=== PATIENT | male | born 1970 | race Two or more races ===

== ENCOUNTER 2017-10-10 17:40 | Emergency (ER) | payer OTHER ==
[~2017-10-10] VITALS: Ht 162.6 cm; Wt 88.3 kg
[2017-10-10] MEDS ORDERED: SODIUM CHLORIDE FLUSH 10ML SYR IVF ONE (18:30)
[2017-10-10] MEDS ORDERED: MORPHINE SULFATE 4 MG/ML, 1ML IVPush PRN (18:30)
[2017-10-10] MEDS ORDERED: ONDANSETRON ODT 4 MG PO ONE (18:30)
[2017-10-10 18:53] LABS: MEAN CORPUSCULAR HEMOGLOBIN 31.1 pg (27.5-34.5); MEAN CORPUSCULAR HGB CONC 33.8 g/dL (33.2-36.2); MEAN PLATELET VOLUME 9.9 fL (7.4-10.4); PLATELET COUNT 171 x10^3/uL (130-400); RED BLOOD COUNT 5.66 x10^6/uL (4.38-5.82)
[2017-10-10 18:59] LABS: ALBUMIN 3.7 g/dL (3.4-5.0); ANION GAP 6 mmol/L (5-15); CALCIUM 9.6 mg/dL (8.5-10.1); CHLORIDE 102 mmol/L (98-107)
[2017-10-10 19:06] LABS: ALANINE AMINOTRANSFERASE 58 U/L (12-78); ALKALINE PHOSPHATASE 121 U/L (45-117); BILIRUBIN,TOTAL 0.7 mg/dL (0.2-1.0); CREATININE 1.31 mg/dL (0.7-1.3); TOTAL PROTEIN 7.8 g/dL (6.4-8.2)
[2017-10-10 19:29] LABS: MD YES
[2017-10-10 19:31] LABS: <PLATELET ESTIMATE> ADEQUATE; <RBC MORPHOLOGY> NORMAL; BAND#(MANUAL) 0.35 x10^3/uL; BANDS%(MANUAL) 3 % (0-7); LARGE PLATELETS 1+; LYMPH#(MANUAL) 0.94 x10^3/uL (1-3.4); LYMPHS% (MANUAL) 8 % (22-44); MONOS#(MANUAL) 0.71 x10^3/uL (0.3-2.7); MONOS% (MANUAL) 6 % (2-9); SEG#(MANUAL) 9.79 x10^3/uL (1.8-6.8); SEGS% (MANUAL) 83 % (42-75)
[2017-10-10 19:32] LABS: MICROSCOPIC INDICATED
[2017-10-10 19:41] LABS: CULTURE INDICATED? YES
[2017-10-10] MEDS ORDERED: KETOROLAC 30 MG/1 ML IVPush ONE (20:00)
[2017-10-10] MEDS ORDERED: ONDANSETRON ODT 4 MG ONE (20:06)
[2017-10-10] MEDS ORDERED: MORPHINE SULFATE 4 MG/ML, 1ML ONE (20:06)
[2017-10-10] MEDS ORDERED: KETOROLAC 30 MG/1 ML ONE (20:08)
[2017-10-10] MEDS ORDERED: SODIUM CHLORIDE 0.9% 1,000ML IVBOLUS ONE (20:30)
[2017-10-10 20:38] VITALS: BP 193/111
== END 2017-10-10 21:56 | disposition home or self-care (01) ==
LOC: ED 21:45
DX: N13.2 Hydronephrosis with renal and ureteral calculous obstruction (principal); I10 Essential (primary) hypertension
CPT/HCPCS: 36415; 74176; 80053; 81001; 83690; 85025; 87086; 96374; 99285; J1885; J7030; Q0162; 96361